=== PATIENT | female | born 1960 | race Caucasian/White ===

== ENCOUNTER 2018-08-21 18:57 | Emergency (ER) | payer MEDICAID ==
[~2018-08-21] VITALS: Ht 162.6 cm; Wt 104.5 kg
[2018-08-21 18:59] VITALS: Ht 162.6 cm; Wt 104.5 kg
[2018-08-21] MEDS ORDERED: GLUCOPHAGE500 MG PO (19:03)
[2018-08-21] MEDS ORDERED: CHRONULAC30 ML PO (19:04)
[2018-08-21] MEDS ORDERED: TRAZODONE HCL150 MG PO (19:04)
[2018-08-21] MEDS ORDERED: ZOLOFT50 MG PO (19:05)
[2018-08-21 19:31] LABS: BASOPHILS 0.2 % (0-2); IMMATURE GRANULOCYTES 0.5 % (0-5); LYMPHOCYTES 24.6 % (15-50); MCHC 33.3 g/dL (31.0-37.0); MEAN PLATELET VOLUME 10.3 fL (7.4-10.4); MONOCYTES 6.4 % (2-11); NEUTROPHILS 65.3 % (40-80); RBC 5.17 10x6/uL (4.00-5.40); RDW 12.9 % (11.5-14.5); WBC 8.7 10x3/uL (4.8-10.8)
[2018-08-21 19:33] LABS: PLATELET COUNT 282 10x3/uL (130-400)
[2018-08-21 19:36] LABS: APPEARANCE CLEAR (CLEAR); BILIRUBIN NEGATIVE (NEGATIVE); COLOR YELLOW (YELLOW); GLUCOSE 1000 mg/dL (NEGATIVE); KETONE LARGE mg/dL (NEGATIVE); NITRITE POSITIVE (NEGATIVE); PROTEIN NEGATIVE (NEGATIVE); UROBILINOGEN NORMAL (NORMAL)
[2018-08-21 19:38] LABS: RED CELLS - URINE 0-5 /hpf (0-5)
[2018-08-21 19:39] LABS: BACTERIA MANY /hpf (NONE SEEN); EPITHELIAL CELLS 0-5 /hpf (0-5)
[2018-08-21 19:40] LABS: MUCUS <1+ /lpf (NONE SEEN)
[2018-08-21 19:44] LABS: ALBUMIN 3.4 g/dL (3.4-5.0); ANION GAP 15.8 mmol/L (8-16); BILIRUBIN - TOTAL 0.49 mg/dL (0.2-1.3); CALCIUM 8.7 mg/dL (8.5-10.1); CARBON DIOXIDE 23.3 mmol/L (21.0-32.0); CREATININE - SERUM 0.9 mg/dL (0.6-1.3); POTASSIUM - SERUM 3.1 mmol/L (3.5-5.1); PROTEIN - SERUM 7.1 g/dL (6.4-8.2)
[2018-08-21] MEDS ORDERED: OMNICEF300 MG PO (21:08)
[2018-08-21 22:00] VITALS: BP 148/99
== END 2018-08-21 22:00 | disposition home or self-care (01) ==
LOC: D.ER 18:57
PROVIDERS: Emergency Medicine
DX: N39.0 Urinary tract infection, site not specified (principal); G89.29 Other chronic pain